=== PATIENT | male | born 1945 | race Caucasian/White ===

== ENCOUNTER 2017-10-19 23:12 | Emergency (ER) | payer MEDICARE, OTHER ==
--- NOTE | 2017-10-19 23:54 | EDM.PDOC ---
ED HPI GENERAL MEDICAL PROBLEM - General Chief Complaint: Neuro Symptoms/Deficits Stated Complaint: ILLNESS Time Seen by Provider: 10/19/17 23:15 Source of Information: Reports: EMS, Family History Limitations: Reports: Altered Mental Status - History of Present Illness INITIAL COMMENTS - FREE TEXT/NARRATIVE: 72-year-old male arrives by ambulance with a rapidly decreasing mental status after complaining of a severe headache. One and half hours ago he went to bed in his normal state of health, after he went to bed he complained of a severe headache and his called the ambulance. On arrival he was still answering questions appropriately but rapidly worsened in route. On arrival to the emergency room he had right-sided paralysis, just a small amount of response to left-sided stimulation, no verbal effort and was basically unconscious. [place] Coma Scale was 4. Blood pressure was 213/120 and he was in a sinus rhythm with PVCs. Onset: Sudden Severity: Severe - Related Data Allergies Allergy/AdvReac Type Severity Reaction Status Date / Time No Known Allergies Allergy Verified 10/19/17 23:27 Home Meds: Home Meds Atenolol [Tenormin] 75 mg PO DAILY 08/01/13 [History] Loratadine [Claritin] 10 mg PO DAILY 08/01/13 [History] Terazosin [Hytrin] 10 mg PO BEDTIME 08/01/13 [History] Aspirin [Lo-Dose Aspirin EC] 1 tab PO DAILY 06/24/17 [History] Cyanocobalamin (Vitamin B-12) [B-12] 1 tab PO DAILY 06/24/17 [History] Finasteride [Proscar] 1 tab PO DAILY 06/24/17 [History] Lisinopril 1 tab PO DAILY 06/24/17 [History] Multivitamin [Daily [place]] 1 tab PO DAILY 06/24/17 [History] Nitroglycerin 1 tab SL ASDIRECTED 06/24/17 [History] Rosuvastatin [Crestor] 1 tab PO DAILY 06/24/17 [History] metroNIDAZOLE [metroNIDAZOLE 0.75% Gel] 1 appful TOP ASDIRECTED 06/24/17 [ History] Isosorbide Mononitrate [Imdur] 30 mg PO DAILY 06/25/17 [History] Past Medical History Cardiovascular History: Reports: High Cholesterol, Hypertension, Other (See Below) Other Cardiovascular History: Heart blockage. Scheduled for angiogram in 2 weeks. [place]. Social & Family History - Tobacco Use Smoking Status *Q: Never Smoker Second Hand Smoke Exposure: No - Caffeine Use Caffeine Use: Reports: Coffee - Alcohol Use Days Per Week of Alcohol Use: 0 Number of Drinks Per Day: 2 Total Drinks Per Week: 0 - Recreational Drug Use Recreational Drug Use: No ED ROS GENERAL - Review of Systems Review Of Systems: Unable To Obtain ED EXAM, NEURO - Physical Exam Exam: See Below Exam Limited By: Altered Mental Status General Appearance: Obtunded Eye Exam: Bilateral Eye: Other (Pupils were very pinpoint, symmetric, he had no spontaneous eye movement) Throat/Mouth: Normal Inspection Head Exam: Atraumatic Respiratory/Chest: No Respiratory Distress, Lungs Clear Cardiovascular: Regular Rate, Rhythm Neurological: Withdraws to Pain (A small amount of withdrawal from pain at the left leg, the only neurologic finding) Skin Exam: Warm, Dry Course - Vital Signs Last Recorded V/S: Last Vital Signs Temp 93.9 F L 10/19/17 23:26 Pulse 77 10/19/17 23:39 Resp 7 L 10/19/17 23:39 BP 161/107 H 10/19/17 23:39 Pulse Ox 97 10/19/17 23:39 - Orders/Labs/Meds Orders: Active Orders 24 hr Category Date Time Status Head wo Cont [CT] Stat Exams 10/19/17 23:13 Taken - Re-Assessments/Exams Free Text/Narrative Re-Assessment/Exam: 10/19/17 23:[address] scan of the head without contrast revealed a large left cerebellar hemorrhage. The blood pressure started to normalize but the patient's respirations were slowing so an 8.0 ET tube was placed under direct visualization using a glidescope. Patient did not have a gag reflex so medications were not used. Flight crew arrived at that time so he was transferred rapidly to the helicopter to [facility] for an urgent neurosurgical evaluation. Departure - Departure Time of Disposition: 00:06 Disposition: DC/Tfer to Acute Hospital 02 Condition: Critical Clinical Impression: Cerebrovascular accident (CVA) Qualifiers: Precerebral and cerebral artery: cerebellar artery Laterality of affected vessel: left - Discharge Information Referrals: Pb Caldwell MD [Primary Care Provider] - Forms: ED Department Discharge Care Plan Goals: Urgent transfer to [facility] for neurosurgical evaluation for treatment of acute cerebellur hemorrhage. Critical Care Note - Critical Care Note Total Time (mins): 60 - My Orders Last 24 Hours: My Active Orders 10/19/17 23:13 Head wo Cont [CT] Stat - Assessment/Plan Last 24 Hours: My Active Orders 10/19/17 23:13 Head wo Cont [CT] Stat
== END 2017-10-20 00:06 ==
LOC: JP.ED 23:12
DX: I63.9 Cerebral infarction, unspecified (principal); E78.00 Pure hypercholesterolemia, unspecified; I10 Essential (primary) hypertension; Z79.82 Long term (current) use of aspirin; Z79.899 Other long term (current) drug therapy
CPT/HCPCS: 70450; 99285-25